=== PATIENT | female | born 1985 | race Caucasian/White ===

== ENCOUNTER 2018-04-11 18:22 | Emergency (ER) | payer SELFPAY ==
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
[2018-04-11 19:45] VITALS: BP 100/84
== END 2018-04-11 19:45 | disposition home or self-care (01) ==
DX: S02.2XXA Fracture of nasal bones, initial encounter for closed fracture (principal); Y04.0XXA Assault by unarmed brawl or fight, initial encounter